=== PATIENT | male | born 1970 | race Caucasian/White ===

== ENCOUNTER → 2023-12-16 13:06 | Outpatient (BNVA) | payer MEDICARE, MEDICAID, SELFPAY | PROVIDERS: PCP Family Medicine; Referring Provider Family Medicine; Visit Provider Nurse Practitioner Gerontology | DX: R35.0 Frequency of micturition (principal) | CPT/HCPCS: 51798; 81003; 99205 ==

== ENCOUNTER → 2024-02-05 11:42 | Outpatient (BNVA) | payer MEDICARE, MEDICAID, SELFPAY | PROVIDERS: PCP Family Medicine; Referring Provider Family Medicine; Visit Provider Podiatrist | DX: B35.1 Tinea unguium (principal); L60.3 Nail dystrophy; M79.671 Pain in right foot; M79.672 Pain in left foot | CPT/HCPCS: 11719; 11720 ==

== ENCOUNTER → 2024-03-17 15:28 | Outpatient (BNVA) | payer MEDICARE, MEDICAID, SELFPAY | PROVIDERS: PCP Family Medicine; Referring Provider Family Medicine; Visit Provider Nurse Practitioner Gerontology | DX: R35.0 Frequency of micturition (principal) | CPT/HCPCS: 51798; 99213 ==

== ENCOUNTER → 2024-06-10 11:01 | Outpatient (BNVA) | payer MEDICARE, MEDICAID, SELFPAY | PROVIDERS: PCP Family Medicine; Referring Provider Family Medicine; Visit Provider Podiatrist | DX: L60.3 Nail dystrophy (principal); B35.1 Tinea unguium; M79.671 Pain in right foot; M79.672 Pain in left foot; D64.9 Anemia, unspecified | CPT/HCPCS: 11719; 11720 ==

== ENCOUNTER → 2024-11-09 15:16 | Outpatient (BNVA) | payer MEDICARE, MEDICAID, SELFPAY | PROVIDERS: PCP Family Medicine; Referring Provider Family Medicine; Visit Provider Nurse Practitioner Gerontology | DX: R35.0 Frequency of micturition (principal); R32 Unspecified urinary incontinence; R39.9 Unspecified symptoms and signs involving the genitourinary system | CPT/HCPCS: 51798; 81003; 99213 ==

== ENCOUNTER → 2025-05-10 15:33 | Outpatient (BNVA) | payer MEDICARE, MEDICAID, SELFPAY | PROVIDERS: PCP Family Medicine; Referring Provider Family Medicine; Visit Provider Nurse Practitioner Gerontology | DX: R35.0 Frequency of micturition (principal) | CPT/HCPCS: 99213; 51798 ==